=== PATIENT | male | born 1980 | race Asian ===

== ENCOUNTER → 2018-04-04 | Outpatient (CLI) | payer OTHER ==
[~2018-04-04] VITALS: Ht 172.7 cm; Wt 72.8 kg
[~2018-04-04] MED LIST: CHLORHEXIDINE GLUCONATE 2 % 1 PACK (2 CLOTHS) TOPICAL PRN; INSULIN HUMAN REGULAR 1,000 UNITS/10 ML VIAL SQ PRN; LACTATED RINGER'S 1000 ML IV PRN; LIDOCAINE HCL 1% PF 5 ML SYRINGE OTHER ONE; METOPROLOL TARTRATE 25 MG TAB PO PRN; POVIDONE IODINE 5% (ANTISEPSIS KIT) 4 APPLICATIONS EACH NARE PRN; PROPOFOL 200 MG/20 ML AMP IV ONE; SODIUM CHLORID 0.9% 500 ML IV PRN
--- NOTE | 2018-04-04 12:04 | GIPROC ---
[facility] [address] [facility]. [facility], [address] COLONOSCOPY PROCEDURE REPORT EXAM DATE: 04/04/2018 PATIENT NAME: Norberto Larsen MR #: [id number] BIRTHDATE: 1980 ENDOSCOPIST: Cecilia Delgadillo MD ORDER #: [id number] EYELET OPERATOR: Bartolome Woodard and Molly Johnson STATUS: outpatient INDICATIONS: The patient is a 37 yr old male here for a colonoscopy due to patient's immediate family history of colon cancer and ocassional BRBPR when wipes PROCEDURE PERFORMED: Colonoscopy, screening Thermal destruction internal hemorrhoids MEDICATIONS: None and Per Anesthesia. PREP QUALITY: fair PREP TYPE:Other: ESTIMATED BLOOD LOSS: None CONSENT: The patient understands the risks and benefits of the procedure and understands that these risks include, but are not limited to: sedation, allergic reaction, infection, perforation and/or bleeding. Alternative means of evaluation and treatment include, among others: physical exam, x-rays, and/or surgical intervention. The patient elects to proceed with this endoscopic procedure. medical equipment was checked for proper function. Hand hygiene and appropriate measures for infection prevention was taken. After the risks, benefits and alternatives of the procedure were thoroughly explained, Informed consent was verified, confirmed and timeout was successfully executed by the treatment team. A digital exam revealed external hemorrhoids The Pentax [id number] endoscope was introduced through the anus and advanced to the cecum, which was identified by both the appendix and ileocecal valve. The instrument was then slowly withdrawn as the colon was fully examined. COLON FINDINGS: Internal hemorrhoids -grade I-s/p thermal destructions using IRC-setting 2-3 applications. Retroflexed views revealed internal hemorrhoids and Retroflexed views revealed small internal hemorrhoids The scope was then completely withdrawn from the patient and the procedure terminated. PROCEDURE WITHDRAWAL TIME:8minutes ADVERSE EVENTS: There were no complications. IMPRESSIONS: 1. Internal hemorrhoids -grade I-s/p thermal destructions using IRC-setting 2-3 applications 2. Retroflexed views revealed internal hemorrhoids 3. Retroflexed views revealed small internal hemorrhoids 4. Revealed external hemorrhoids RECOMMENDATIONS: 1. Benefiber 2 tsp daily 2. High fiber diet 3. Probiotics from any [facility] or health food store 4. Yearly rectal exams 5. Proctozone cream , lidocaine cream RECALL: Return 5 years Colonoscopy flexisigmoidoscopy with IRC can be repeated in 6-8 weeks if still issues Cecilia Delgadillo MD eSigned: Cecilia Delgadillo MD 04/04/2018 12:04 PM cc: Julianne Renee M.D.
[2018-04-04 12:40] VITALS: BP 120/70; PULSE 60; RESP 16; O2SAT 100
== END ==
LOC: HSDC 08:48
PROVIDERS: ATTEND Internal Medicine Gastroenterology
DX: K64.0 First degree hemorrhoids (principal); K64.4 Residual hemorrhoidal skin tags; Z80.0 Family history of malignant neoplasm of digestive organs; K62.5 Hemorrhage of anus and rectum
CPT/HCPCS: 46930